=== PATIENT | female | born 1995 ===

== ENCOUNTER → 2023-10-02 | Outpatient (CLI) | payer BC ==
[2023-10-03 11:06] LABS: Treponema Pallidum Ab LC Non Reactive (Non Reactive)
[2023-10-03 21:06] LABS: Chlamydia Trachomatis, NAA Negative (Negative); Neisseria gonorrhoeae, NAA Negative (Negative)
[2023-10-04 07:06] LABS: RPR Non Reactive (Non Reactive)
== END | disposition home or self-care (01) ==
LOC: LAB 13:37
DX: Z11.3 Encounter for screening for infections with a predominantly sexual mode of transmission (principal)
CPT/HCPCS: 84112; 86592; 86703